=== PATIENT | female | born 1985 | race Caucasian/White ===

== ENCOUNTER → 2021-03-10 12:47 | Outpatient (CLI) | payer OTHER, SELFPAY ==
[2021-03-10 13:13] LABS: Coronavirus 19, PCR Not Detected (NotDetected); Influenza A, PCR Not Detected (NotDetected); Influenza B, PCR Not Detected (NotDetected)
== END ==
PROVIDERS: PCP Physician Assistant; Visit Provider Nurse Practitioner
DX: Z20.822 Contact with and (suspected) exposure to COVID-19 (principal)
CPT/HCPCS: C9803; U0003; U0005

== ENCOUNTER → 2021-03-22 02:14 | Outpatient (CLI) | payer OTHER, SELFPAY ==
[2021-03-22 02:30] VITALS: BMI 27.9
[2021-03-22 02:32] VITALS: BP 124/75; PULSE 75; RESP 16; TEMP 36.7; O2SAT 99
== END | disposition home or self-care (01) ==
PROVIDERS: PCP Physician Assistant; Visit Provider Emergency Medicine
DX: J06.9 Acute upper respiratory infection, unspecified (principal)
CPT/HCPCS: 96365; 96374; 96375

== ENCOUNTER → 2021-08-09 02:00 | Outpatient (CLI) | payer OTHER, SELFPAY | PROVIDERS: PCP Physician Assistant; Visit Provider Emergency Medicine | DX: H10.9 Unspecified conjunctivitis (principal); J32.9 Chronic sinusitis, unspecified ==

== ENCOUNTER → 2021-08-21 04:10 | Outpatient (CLI) | payer OTHER, SELFPAY | PROVIDERS: Visit Provider Nurse Practitioner | DX: Z20.822 Contact with and (suspected) exposure to COVID-19 (principal) ==

== ENCOUNTER → 2021-12-03 08:10 | Outpatient (CLI) | payer OTHER, SELFPAY ==
[2021-12-03 20:54] LABS: Amphetamine/Metha Screen,Urine Positive ng/ml (<1000); Barbiturates Screen,Urine Negative ng/ml (<200)
[2021-12-03 20:55] LABS: Benzodiazepines Screen,Urine Negative ng/ml (<200)
[2021-12-03 20:56] LABS: Cannabinoid Screen,Urine Negative ng/ml (<50); Cocaine Screen,Urine Negative ng/ml (<300)
[2021-12-03 20:57] LABS: Methadone Screen,Urine Negative ng/ml (<300)
[2021-12-03 20:58] LABS: Opiate Screen,Urine Negative ng/ml (<300); Phencyclidine Screen,Urine Negative ng/ml (<25)
== END ==
PROVIDERS: PCP Physician Assistant; Visit Provider Physician Assistant
DX: F90.9 Attention-deficit hyperactivity disorder, unspecified type (principal)
CPT/HCPCS: 80305

== ENCOUNTER → 2022-02-12 04:11 | Outpatient (CLI) | payer OTHER, SELFPAY | PROVIDERS: PCP Physician Assistant; Visit Provider Nurse Practitioner | DX: Z20.822 Contact with and (suspected) exposure to COVID-19 (principal) ==

== ENCOUNTER → 2022-02-14 07:15 | Outpatient (CLI) | payer OTHER, SELFPAY ==
--- NOTE | 2022-02-14 07:35 | MR_ITS ---
FINAL REPORT CLINICAL HISTORY: left knee pain. knee locks up. symptoms for years. FINDINGS: Multi planar MR imaging was performed of the left knee. Overall exam quality is degraded by patient motion. The anterior and posterior cruciate ligaments are intact. The quadriceps and patellar tendons are intact. The medial and lateral menisci are intact without evidence of tear. The medial and lateral collateral ligaments appear intact. The medial and lateral retinacula appear intact. There is no evidence of bone marrow edema or osteochondral defect. No evidence of soft tissue inflammatory reaction. IMPRESSION: Exam degraded by motion. No evidence of significant internal derangement. Reviewed, Interpreted and Dictated by Joshua Cuevas MD Transcribed by Memo Quiñones Authenticated and [facility]
--- NOTE | 2022-02-14 07:35 | MR_ITS ---
FINAL REPORT CLINICAL HISTORY: Right shoulder pain x2 months. limited rom. weakness in arm. FINDINGS: Multi planar MR imaging of the right shoulder was performed. The supraspinatus tendon appears intact. There is no abnormal fluid in the subacromial/subdeltoid bursa. The anterior and posterior glenoid elzbieta appear intact. The biceps tendon appears intact. There are mild hypertrophic changes at the AC joint. There is mild marrow edema in the distal clavicle and acromion. IMPRESSION: Mild marrow edema in the distal clavicle and acromion may be due to mild ligamentous instability. Reviewed, Interpreted and Dictated by Joshua Cuevas MD Transcribed by Memo Quiñones Authenticated and [facility]
== END ==
LOC: RAD 07:15
PROVIDERS: PCP Physician Assistant; Visit Provider Physician Assistant
DX: M25.511 Pain in right shoulder (principal); M25.562 Pain in left knee
CPT/HCPCS: 73221; 73721

== ENCOUNTER 2022-03-03 09:58 | Outpatient (RCR) | payer OTHER, SELFPAY ==
--- NOTE | 2022-03-03 12:45 | HMH.OTOPEV ---
OT Inpatient Evaluation Rehab OT Outpatient Eval Start: 03/03/22 12:15 Freq: Status: Active Protocol: Document 03/03/22 12:16 OLEG (Rec: 03/03/22 12:45 KIARAVIVIAN [id number]) E-signed By Marilyn Larson, OT Outpatient Therapy Subjective History Subjective History 37 year old female referred to skilled OP OT services for R shld pain. 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 MRI completed on 02/14/22 with findings of: Mild marrow edema in the distal clavicle and acromion may be due to mild ligamentous instability. Patient completed B UE AROM WFL and stated to have pain/numbnesss in B hands intermittent. OT consulted with PT re: Patient' s currently situation and c/o of the R shld/cervical area. PT agreed that the pain in the R side is coming from the neck vs the shld. Patient will be referred to PT at this time. Chief Complaint Pain Symptom Type Sharp,Numbness,Tingling Symptoms Relieved By Nothing Symptoms Aggravated By Physical Activity Prior Functional Limitations None Level of pain today (0-10) 4 Pain scale - at its best (0-10) 4 Pain scale - at its worst (0-10) 8 Shoulder/Elbow Eval Shoulder Objective Measurements Shoulder ROM Right Shoulder Abduction Active Range of 160 Motion (degrees) Shoulder Flexion Active Range of Motion 160 (degrees) Query Text: Shoulder External Rotation Passive Range 90 of Motion (degrees) Shoulder Internal Rotation Passive Range 60 of Motion (degrees) Elbow Objective Measurements OT Outpatient Assessment Impairments Problems/Impairments Impaired Strength,Subjective C /O Pain Prognosis Rehab Potential Innapropriate for Skilled Therapy Comment referred patient to PT Clinical Impression Consistent with Diagnosis No Outpatient Therapy Plan of Care Addendums This patient is a candidate for social No or vocational rehab?
== END 2022-03-03 09:59 | disposition home or self-care (01) ==
LOC: OT 09:58
PROVIDERS: PCP Physician Assistant; Visit Provider Physician Assistant
DX: M25.511 Pain in right shoulder (principal)
CPT/HCPCS: 97165

== ENCOUNTER → 2022-03-10 07:50 | Outpatient (CLI) | payer OTHER, SELFPAY ==
--- NOTE | 2022-03-10 08:05 | MR_ITS ---
FINAL REPORT CLINICAL HISTORY: neck pain. RIGHT SIDED SHOULDER, NECK AND ARM PAIN. NO INJURY OR TRAUMA. FINDINGS: Multiplanar MR imaging of the cervical spine was performed without contrast. On the sagittal T2-weighted images, disc degeneration is seen throughout. There is no evidence of fracture. The vertebral alignment is normal. The cervical spinal cord has an unremarkable appearance without evidence of mass, edema or syrinx. No significant canal stenosis is identified. The cervicomedullary junction is normal. C2-3: There is no significant canal stenosis or neural foraminal narrowing. C3-4: There is no significant canal stenosis or neural foraminal narrowing. C4-5: An annular disc bulge is present. C5-6: An annular disc bulge is present. C6-7: An annular disc bulge is present. C7-T1: There is no significant canal stenosis or neural foraminal narrowing. IMPRESSION: Multilevel degenerative disc disease with annular disc bulges at C4-5, C5-6 and C6-7. Reviewed, Interpreted and Dictated by Erik Rodriguez III, MD Transcribed by Aby Pardo Authenticated and [facility]
== END ==
PROVIDERS: PCP Physician Assistant; Visit Provider Physician Assistant
DX: M54.2 Cervicalgia (principal)
CPT/HCPCS: 72141; 76376

== ENCOUNTER → 2022-04-07 07:28 | Outpatient (CLI) | payer OTHER, SELFPAY ==
--- NOTE | 2022-04-07 07:34 | MR_ITS ---
FINAL REPORT CLINICAL HISTORY: For Ortho Consult, right sided back pain. symptoms [id number]. FINDINGS: Multiplanar MR imaging of the thoracic spine was performed without contrast. On the sagittal T2-weighted images, disc degeneration is seen at multiple levels. There is no evidence of fracture. The vertebral alignment is normal. The thoracic spinal cord has an unremarkable appearance without evidence of mass, edema or syrinx. There is no evidence of significant canal stenosis or cord compression. On the axial images, mild disc bulges and small osteophytes are seen at multiple levels. No focal soft disc protrusion is identified. There is no evidence of significant canal stenosis or cord compression. No paraspinous soft tissue abnormality is identified. IMPRESSION: Multilevel mild degenerative disc disease and spondylosis. No focal soft disc protrusion or significant central canal stenosis. Reviewed, Interpreted and Dictated by Erik Rodriguez III, MD Transcribed by Muriel Silva Authenticated and [facility]
== END ==
LOC: RAD 07:28
PROVIDERS: PCP Physician Assistant; Visit Provider Emergency Medicine
DX: M54.6 Pain in thoracic spine (principal); M54.9 Dorsalgia, unspecified
CPT/HCPCS: 72146

== ENCOUNTER → 2022-04-10 23:36 | Outpatient (CLI) | payer OTHER, SELFPAY ==
--- NOTE | 2022-04-10 23:42 | XR_ITS ---
PROCEDURE INFORMATION: Exam: XR Right Shoulder Exam date and time: 04/10/2022 11:34 PM Age: 37 years old Clinical indication: Patient HX: Right shoulder pain x4 months. No known acute injury TECHNIQUE: Imaging protocol: Radiologic exam of the Right shoulder. Views: 2 or more views. COMPARISON: MR SHOULDER RT WO CON 02/14/2022 8:25 AM FINDINGS: Bones/joints: Normal. Soft tissues: Normal. IMPRESSION: No acute findings.
== END ==
LOC: RAD 23:37
PROVIDERS: PCP Physician Assistant; Visit Provider Orthopaedic Surgery
DX: M25.511 Pain in right shoulder (principal)
CPT/HCPCS: 73030

== ENCOUNTER 2022-05-08 17:00 | Outpatient (RCR) | payer OTHER, SELFPAY ==
--- NOTE | 2022-03-11 17:59 | HMH.PTOPEV ---
PT Outpatient Evaluation Rehab PT Outpatient Evaluation Start: 03/11/22 15:01 Freq: Status: Active Protocol: Document 03/11/22 15:01 DARYL (Rec: 03/11/22 17:58 DARYL [id number]) E-signed By Alessandra Renner, PT Outpatient Therapy Subjective History Subjective History Pt is a 37 y/o female that reports onset of right shoulder pain and soreness on 12/03/21. 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 Pt reports she rested for a week or so which did improve pain. Pt reports she then tried initiating her normal workout routine and while performing a row had sharp shoting pain down the right arm into the hand so severe it made her nauseous. Pt reports she noticed her right scapula was protruding and swollen compared to the other side as well. Pt reports this pain caused her to return to the doctor. Pt had a shoulder MRI on 02/14/22 showing mild marrow edema in the distal clavicle and acromion may be due to mild ligamentous instability. Pt also had a cervical spine MRI on 03/10/22 showing Multilevel degenerative disc disease with annular disc bulges at C4-5, C5-6 and C6-7. Pt reports she was given a round of steroids which did help with the pain and swelling. Pt reports it was starting to get better again then her dog pushed her right arm into adduction with his paw while playing causing the arm to flare back up and sharp shooting pain into the arm/ hand. Pt reports her arm/hand will also get a cool sensation
--- NOTE | 2022-03-25 15:45 | HMH.PTPN ---
[facility] Rehab Progress Note Rehab Progress Note Start: 03/25/22 15:22 Freq: Status: Active Protocol: Document 03/25/22 15:22 DARYL (Rec: 03/25/22 15:44 DARYL [id number]) Rehab Progress Summary Visit Consistency Pt has been seen __ out of __ times 3/3 From ___ to ____ 03/11/22 - 03/20/22 Treatment Received Therapeutic Exercise Including Home Yes: gentle stretching of Exercise Program cervical musculature Neuromuscular Re-education Yes: postural reeducation ( slouch overcorrect, chin tucks ), median N glide Manual Therapy Techniques Yes: suboccipital release with traction, cervicothoracic mobilizations, cupping ADL/Self Care Education Yes: protective mechanisms at work, limiting lifting/pulling /pushing activities Electrical Stimulation Yes Ultrasound/Phonophoresis Yes: Phonopheresis to R AC joint Iontophoresis Yes: applied to R AC joint, inferior angle of scapula, & levator scapulae Vasopneumatic Compression Pump Yes: applied to R cervicothoracic & shoulder muscles with IFC Subjective Subjective Pt demonstated full R shoulder AROM upon initial PT exmination; however, upon followup visits demonstrated inability to elevate the R shoulder further than 90 degrees due to generalized R shoulder pain. Pt also demonstrated elevated right shoulder resting position compared to left upon followup visit although denied traumatic injury. Due to recent presentation, AC joint sprain is unable to be ruled out along with original presentation of cervical radiculopathy. Pt may benefit from further anti-inflammatory medication to assist with PT progress and occupation if you agree is appropriate at this time. Compliance With Home Exercise Program Yes/No yes Assessment PT Progress Assessment Slower Than Expected Recommendation
--- NOTE | 2022-04-10 18:24 | HMH.RHREAS ---
Rehab Reassessment Rehab OP Re-assessment Start: 04/10/22 16:59 Freq: Status: Active Protocol: Document 04/10/22 16:59 OLVINKOREY (Rec: 04/10/22 18:21 OLVINKIARADEDE [id number]) E-signed By Alessandra Renner PT Rehab Re-assessment Subjective Subjective Pt reports she feels 70% improved since starting PT with continued limited activity with occupation and recreation due to pain. 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 Pt reports abolished cold sensation and denies paresthesia but reports intermittent pulling sensations along the right shoulder to the elbow and soreness with activity. Pt reports she is getting R shoulder radiographs tonight and has an appointment with Dr Lili Omalley on Thursday. Objective Objective Notes Observation: distance from shoulder blade to spine 8.5 cm on R and 8 cm on L TTP: R AC joint, SC joint, clavicle, proximal bicep tendon, upper trapezius, levator scapule, rhomboid major, inferior angle of scapula Cervical AROM: flex 45, ext 45 , RLF 55, LLF 55 R shoulder seated AROM: flexion 155, abduction 155 (p! at 90) RUE MMT: shoulder flex 4+/5 p! , shoulder abd 4/5 p!, shoulder ER 5/5, IR 5/5 p!, elbow flex 5/5 p!, elbow ext 5 /5 Assessment Progress Assessment Progressing as Expected Assessment Notes Pt has attended 9 PT visits consisting of gentle cerivcothoracic and scapular mobility, cervical stretching, neural glides, gentle scapular strengthening, manual
== END 2022-05-08 17:05 | disposition home or self-care (01) ==
LOC: PT 17:00
PROVIDERS: PCP Physician Assistant; Visit Provider Physician Assistant
DX: M54.2 Cervicalgia (principal)
CPT/HCPCS: 20560; 97010; 97012; 97014; 97016; 97033; 97035; 97110; 97112; 97140; 97163; 97164; 97535; G0283

== ENCOUNTER 2022-09-10 17:00 | Outpatient (RCR) | payer OTHER, SELFPAY | END 2022-09-10 17:05 | disposition home or self-care (01) | LOC: PT 17:00 | PROVIDERS: PCP Physician Assistant; Visit Provider Orthopaedic Surgery | DX: M25.511 Pain in right shoulder (principal); R53.1 Weakness; R20.0 Anesthesia of skin; Z48.89 Encounter for other specified surgical aftercare | CPT/HCPCS: 20560; 20561; 97010; 97012; 97014; 97110; 97112; 97140; 97163; 97164; G0283 ==

== ENCOUNTER → 2022-11-13 23:19 | Outpatient (CLI) | payer OTHER, SELFPAY | END | disposition home or self-care (01) | PROVIDERS: PCP Physician Assistant; Visit Provider Emergency Medicine | DX: M25.511 Pain in right shoulder (principal) ==

== ENCOUNTER 2023-06-26 11:48 | Outpatient (CLI) | payer OTHER, SELFPAY ==
--- NOTE | 2023-06-26 12:01 | XR_ITS ---
FINAL REPORT CLINICAL HISTORY: Preoperative respiratory clearance, SURGERY, smoker COMPARISON: None FINDINGS: The cardiac silhouette is normal. The mediastinal and hilar structures are unremarkable. The lungs are clear. There is no pneumothorax. IMPRESSION: No acute process. Reviewed, Interpreted and Dictated by iBll Barber MD Transcribed by LAWSON Del Cid Authenticated and [facility]
--- NOTE | 2023-06-26 12:45 | ECG_ITS ---
APPROVED REPORT Exam: Resting ECG HR:65 bpm ECG Measurements Heart Rate 65 AXES LA 140 P 30 QRSd 81 QRS 94 QT 372 T 72 QTc 384 Conclusion SINUS RHYTHM BORDERLINE RIGHT AXIS DEVIATION [QRS AXIS > 90] BORDERLINE ECG UNCONFIRMED REPORT Electronically signed by : Jose R Rivas MD 06/27/2023 16:39:14
[2023-06-26 12:50] LABS: Basophils # 0.1 K/mm3 (0-0.2); Basophils % 1.4 % (0.1-2.0); Eosinophils # 0.1 K/mm3 (0.0-0.4); Eosinophils % 1.4 % (0.1-12.0); Hematocrit 42.1 % (37.0-47.0); Hemoglobin 13.9 g/dL (12.2-16.2); Lymphocytes # 1.7 K/mm3 (0.7-4.5); Lymphocytes % 26.1 % (10-50); Mean Corpuscular Hemoglobin 30.1 pg (27.0-31.2); Mean Corpuscular Volume 91.3 fl (81-99); Mean Platelet Volume 8.4 fl (7.4-10.4); Monocytes # 0.3 K/mm3 (0.1-1.0); Monocytes % 5.2 % (1.7-9.3); Neutrophils # 4.3 K/mm3 (1.8-7.8); Neutrophils % 65.8 % (37.0-80.0); Platelet Count 254 K/mm3 (142-424); Red Blood Count 4.61 M/mm3 (4.20-5.40); White Blood Count 6.6 K/mm3 (4.8-10.8)
[2023-06-26 12:53] LABS: Chloride 108 mmol/L (98-107); Potassium 3.8 mmoL/L (3.5-5.1); Sodium 138 mmol/L (136-145)
[2023-06-26 12:56] LABS: Anion Gap 8.8 mEq/L (5-15); Blood Urea Nitrogen 13 mg/dl (7-17); Calcium 9.1 mg/dl (8.4-10.2); Carbon Dioxide 25 mmol/L (22.0-30.0); Estimated Glomerular Filt Rate 81 ml/min (>60); GFR (African American) 98 ML/MIN (>60); Glucose 101 mg/dl (74-100)
[2023-06-26 13:01] LABS: Hemoglobin A1C 5.2 % (4.0-6.0)
== END 2023-06-26 23:59 ==
LOC: RAD 11:55
PROVIDERS: PCP Physician Assistant; Visit Provider Orthopaedic Surgery
DX: Z01.818 Encounter for other preprocedural examination (principal); R73.09 Other abnormal glucose; Z87.898 Personal history of other specified conditions
CPT/HCPCS: 36415; 71046; 80048; 83036; 85025; 93005